=== PATIENT | female | born 1950 | race Caucasian/White ===

== ENCOUNTER 2020-03-30 14:10 | Outpatient (CLI) | payer MEDICARE ==
--- NOTE | 2020-03-30 14:54 | MMO ---
Bilateral MAMMO Bilat Screen [facility]. CLINICAL HISTORY: Patient is 69 years old and is seen for screening. The patient has no family history of breast cancer. The patient has no personal history of cancer. The patient has a history of left Excisional Biopsy in 1991. VIEWS: The views performed were: bilateral craniocaudal with tomosynthesis and bilateral mediolateral oblique with tomosynthesis. FILMS COMPARED: The present examination has been compared to prior imaging studies performed at [facility] on 08/07/2000, 03/12/2007, 05/21/2012 and 10/25/2016. This study has been interpreted with the assistance of computer-aided detection. MAMMOGRAM FINDINGS: There are scattered fibroglandular densities. THERE IS A NODULAR DENSITY IN THE RIGHT UPPER OUTER BREAST. A COUPLE OF PROBABLE NODULAR DENSITIES ARE SEEN IN THE LEFT BREAST ON cc VIEW IMPRESSION: FINDINGS IN BOTH BREASTS REQUIRE ADDITIONAL EVALUATION. SPOT COMPRESSION IS RECOMMENDED. AN ULTRASOUND EXAM IS RECOMMENDED. ADDITIONAL IMAGING. THE RESULTS OF THIS EXAM WERE SENT TO THE PATIENT. ACR BI-RADS Category 0 - Incomplete: Need additional imaging evaluation. [facility] will notify the patient of the need for additional imaging services. MAMMOGRAPHY NOTE: 1. A negative mammogram report should not delay a biopsy if a dominant of clinically suspicious mass is present. 2. Approximately 10% to 15% of breast cancers are not detected by mammography. 3. Adenosis and dense breasts may obscure an underlying neoplasm. Reported by: EARLENE MINOR MD Electonically Signed: [id number]
== END 2020-03-30 14:11 | disposition home or self-care (01) ==
LOC: BICMAMMO 14:10
PROVIDERS: ATTEND Family Medicine
DX: Z12.31 Encounter for screening mammogram for malignant neoplasm of breast (principal); R92.2 Inconclusive mammogram; Z91.89 Other specified personal risk factors, not elsewhere classified
CPT/HCPCS: 77063; 77067

== ENCOUNTER 2020-04-06 13:54 | Outpatient (CLI) | payer MEDICARE ==
--- NOTE | 2020-04-06 15:02 | MMO ---
Bilateral MAMMO Bilat Diag [facility]. CLINICAL HISTORY: Patient is 69 years old and is seen for diagnostic exam. The patient has no family history of breast cancer. The patient has no personal history of cancer. The patient has a history of left Excisional Biopsy in 1991. VIEWS: The views performed were: bilateral craniocaudal with tomosynthesis; bilateral mediolateral oblique with tomosynthesis; and bilateral mediolateral with tomosynthesis. FILMS COMPARED: The present examination has been compared to prior imaging studies performed at [facility] on 10/25/2016, 03/30/2020 and 04/06/2020. This study has been interpreted with the assistance of computer-aided detection. MAMMOGRAM FINDINGS: There are scattered fibroglandular densities. There are three new nodules measuring 5 millimeters seen in both breasts. IMPRESSION: NEW NODULES IN BOTH BREASTS ARE PROBABLY BENIGN. FOLLOW-UP IN 6 MONTHS IS RECOMMENDED. THE RESULTS OF THIS EXAM WERE SENT TO THE PATIENT. ACR BI-RADS Category 3 - Probably benign finding - short interval follow-up suggested. [facility] will notify the patient of the need for additional imaging services. MAMMOGRAPHY NOTE: 1. A negative mammogram report should not delay a biopsy if a dominant of clinically suspicious mass is present. 2. Approximately 10% to 15% of breast cancers are not detected by mammography. 3. Adenosis and dense breasts may obscure an underlying neoplasm. Reported by: ESTER GOODE MD Electonically Signed: [id number]
--- NOTE | 2020-04-06 15:49 | ULT ---
ULTRASOUND RIGHT BREAST LIMITED ULTRASOUND LEFT BREAST LIMITED: 04/06/2020 HISTORY: 69-year-old female with new bilateral small, subcentimeter mammographic nodules. Immediately after the ultrasound, Dr. Burgos discussed the findings and recommendation with the patient, for bilateral follow-up ultrasounds and mammograms at 6 months, one year, and 2 years. However, upon further review of the sonographic images, it was decided that ultrasound-guided right b reast biopsy will be recommended. Recommendation for serial follow-up mammograms and ultrasounds for the contralateral left breast will remain unchanged. At 3:23 PM 04/06/2020, Dr. Burgos discussed the recommendation for the biopsy, and the change of recommen dation, by telephone with the patient's referring physician Dr. Thaddeus Ferreira. We have left to messages on the voicemail of the patient, and are awaiting her return call. TECHNIQUE: Focused ultrasound of central portion of right breast from 11:00 approach. Focused ultrasound central left breast from 12:00 approach. Focused ultrasound left inner breast from 9:00 approach. FINDINGS: In the right breast, 3 cm from the nipple, at 11:00 position, there is a nonshadowing, taller than wi de, 0.4 x 0.5 x 0.3 cm hypoechoic lesion. Margins are irregular. The appearance on ultrasound is different from that of the mammogram, in which the margins are smoothly well-circumscribed. The sonog raphic appearance is somewhat suspicious for breast cancer, despite the benign appearing features on the tomographic images of the mammogram. In the left breast at 12:00 position, 3 cm from the nipple, there is a wider than tall, well-circumsc ribed 0.6 x 0.2 x 0.4 cm hypoechoic nonshadowing lesion with circumscribed margins. This could be a tiny cysts. It may or may not correspond to one of the left mammographic nodules. At the 9:00 position, no solid or cystic mass is identified. IMPRESSION: 1.) 3 tiny nonspecific lesions, one in the right breast and 2 in the left breast, on mammogram. 2) 2 tiny lesions found on breast ultrasound, one on the right and one on the left. 3) recommend ultrasound-guided breast biopsy for the right breast lesion at 11:00 position. 4) recommend serial short interval follow-up left mammograms and left breast ultrasounds, 6 months, o ne year, and 2 years. 5) BI-RADS Category 4-suspicious. Biopsy should be considered for the right breast.
== END 2020-04-06 13:55 | disposition home or self-care (01) ==
LOC: BICMAMMO 13:54
PROVIDERS: ATTEND Family Medicine
DX: R92.8 Other abnormal and inconclusive findings on diagnostic imaging of breast (principal); N63.20 Unspecified lump in the left breast, unspecified quadrant; N63.10 Unspecified lump in the right breast, unspecified quadrant
CPT/HCPCS: 76642 ×2; 77066; G0279

== ENCOUNTER → 2020-04-17 | Day surgery (SDC) | payer MEDICARE ==
--- NOTE | 2020-04-17 14:03 | MMO ---
FILMS COMPARED: The present examination has been compared to prior imaging studies performed at [facility] on 03/30/2020 and 04/06/2020. MAMMOGRAM FINDINGS: There are scattered fibroglandular densities. BX CLIP CENTRAL RIGHT BREAST IMPRESSION: FINDING IN THE RIGHT BREAST IS CONFIRMED UTILIZING POST PROCEDURE MAMMOGRAM. Reported by: GETACHEW COMBS MD Electonically Signed: [id number]
--- NOTE | 2020-04-17 16:26 | ULT ---
PROCEDURE: US Breast Bx US Guided Ultrasound-guided biopsy marker clip placement PROVIDED CLINICAL HISTORY: Right breast mass. COMPARISON: 04/06/2020 TECHNIQUE: The procedure including risks and complications were explained to the patient, and informed consent w as obtained. Patient was placed on the sonography table in the supine position. Limited sonographic evaluation of the right breast was performed. Small oval-shaped hypoechoic mass right breast at the 1 1 o'clock position was localized. An area was marked and then meticulously prepped and draped in usual sterile fashion. The skin and subcutaneous tissues were infiltrated with buffered 1% lidocaine for local anesthesia. A small skin incision was made. Utilizing concurrent real-time ultrasound guidance, a total of 4 core needle biopsy specimens were obtained utilizing a 14-gauge biopsy needle. The lesion was almost imperceptible after core biopsy specimens obtained. Utilizing concurrent real-t orlin ultrasound guidance, a biopsy marker clip was deployed at site of biopsy in region of mass. Hemostasis was achieved with direct pressure. Dry sterile dressing was placed. Patient tolerated the procedure well and without immediate complication. Patient was transported to mammography for postbiopsy right mammogram. Post biopsy mammogram demonstrates biopsy marker clip in the right breast . IMPRESSION: 1. Hypoechoic mass 11:00 position right breast. 2. Technically successful ultrasound-guided biopsy right breast mass. 3. Technically successful biopsy marker clip right breast at site of biopsy. 4. Pathology is currently pending.
== END ==
LOC: BICULT 12:20
PROVIDERS: ATTEND Family Medicine
PROC: 0H9T3ZX Drainage of Right Breast, Percutaneous Approach, Diagnostic (ICD-10-PCS; principal; 2020-04-17)
DX: D24.1 Benign neoplasm of right breast (principal); N63.11 Unspecified lump in the right breast, upper outer quadrant
CPT/HCPCS: 19083; 88305; 88341; 88342

== ENCOUNTER 2022-08-06 13:33 | Outpatient (CLI) | payer MEDICARE | END 2022-08-06 13:34 | disposition home or self-care (01) | LOC: BICMAMMO 13:33 | PROVIDERS: ATTEND Family Medicine | DX: Z12.31 Encounter for screening mammogram for malignant neoplasm of breast (principal); Z91.89 Other specified personal risk factors, not elsewhere classified; Z98.890 Other specified postprocedural states | CPT/HCPCS: 77063; 77067 ==